=== PATIENT | male | born 1970 | race Caucasian/White ===

== ENCOUNTER 2016-10-13 08:57 | Emergency (ER) | payer MEDICAID ==
[~2016-10-13] VITALS: Ht 182.9 cm; Wt 102.5 kg
[2016-10-13 09:01] VITALS: BP_SYST 142
[2016-10-13] MEDS ORDERED: LIDOCAINE/PRILOCAINE 5 GM CREAM (EMLA) TP ONE (09:30)
[2016-10-13] MEDS ORDERED: AMOXICILLIN/CLAVULANATE POTASSIUM 875 MG TABLET PO ONE (09:30)
[2016-10-13] MEDS ORDERED: ACETAMINOPHEN 500 MG TABLET PO ONE (09:30)
[2016-10-13] MEDS ORDERED: SULFAMETHOXAZOLE/TRIMETHOPR DS 1 TABLET PO ONE (09:30)
[2016-10-13] MEDS ORDERED: SODIUM BICARBONATE 8.4% VIAL 50 MEQ/50 ML VIAL INJ ONE (09:45)
[2016-10-13] MEDS ORDERED: LIDOCAINE/EPI 2% 1:100000 20 ML VIAL INJ ONE (09:45)
[2016-10-13 10:46] VITALS: BP_SYST 142
== END 2016-10-13 10:46 | disposition home or self-care (01) ==
LOC: SED 08:57
DX: L02.212 Cutaneous abscess of back [any part, except buttock and flank] (principal); I10 Essential (primary) hypertension
CPT/HCPCS: 99284

== ENCOUNTER 2016-10-16 07:11 | Emergency (ER) | payer MEDICAID ==
[~2016-10-16] VITALS: Ht 182.9 cm; Wt 96.2 kg
[2016-10-16 07:11] VITALS: BP_SYST 127
[2016-10-16 08:59] VITALS: BP_SYST 122
== END 2016-10-16 08:58 | disposition home or self-care (01) ==
LOC: SED 07:11
DX: Z48.01 Encounter for change or removal of surgical wound dressing (principal); I10 Essential (primary) hypertension
CPT/HCPCS: 99283